=== PATIENT | male | born 1950 | race Two or more races ===

== ENCOUNTER 2018-08-22 09:12 | Outpatient (CLI) | payer MEDICARE, BC ==
[2018-08-22] MEDS ORDERED: OMEG1CAP34 PO (09:50)
[2018-08-22] MEDS ORDERED: IBUP-1840 PO (09:50)
[2018-08-22] MEDS ORDERED: ACET325T14 PO (09:50)
[2018-08-22] MEDS ORDERED: CALCIUM PO (09:50)
[2018-08-22] MEDS ORDERED: POTASSIUM PO (09:50)
[2018-08-22] MEDS ORDERED: [UNRECOGNIZED DRUG - OTHER] PO (09:50)
[2018-08-22] MEDS ORDERED: ATOR10TA PO (09:50)
[2018-08-22 10:16] LABS: BASOPHILS # (AUTO) 0.03 x10^3/uL (0-0.1); BASOPHILS % (AUTO) 1 % (0-1); EOSINOPHILS # (AUTO) 0.16 x10^3/uL (0-0.4); EOSINOPHILS % (AUTO) 3 % (1-7); LYMPHOCYTES # (AUTO) 0.85 x10^3/uL (1-3.4); LYMPHOCYTES % (AUTO) 14 % (22-44); MD NO; MEAN CORPUSCULAR HEMOGLOBIN 31.7 pg (27.5-34.5); MEAN CORPUSCULAR HGB CONC 33.9 g/dL (33.2-36.2); MEAN CORPUSCULAR VOLUME 93.4 fL (81-97); MEAN PLATELET VOLUME 8.6 fL (7.4-10.4); MONOCYTES # (AUTO) 0.71 x10^3/uL (0.2-0.8); MONOCYTES % (AUTO) 12 % (2-9); NEUTROPHILS # (AUTO) 4.18 x10^3/uL (1.8-6.8); NEUTROPHILS % (AUTO) 71 % (42-75); PLATELET COUNT 189 x10^3/uL (130-400); RED CELL DISTRIBUTION WIDTH 14.6 % (9.4-14.8)
[2018-08-22 10:19] LABS: MICROSCOPIC NOT IND
[2018-08-22 10:28] LABS: CALCIUM 8.8 mg/dL (8.5-10.1)
[2018-08-22 10:31] LABS: ALANINE AMINOTRANSFERASE 28 U/L (12-78); ALKALINE PHOSPHATASE 80 U/L (45-117); ANION GAP 6 mmol/L (5-15); BILIRUBIN,TOTAL 0.8 mg/dL (0.2-1.0); CHLORIDE 111 mmol/L (98-107); CREATININE 1.16 mg/dL (0.7-1.3); TOTAL PROTEIN 7.1 g/dL (6.4-8.2)
== END 2018-08-22 23:59 | disposition home or self-care (01) ==
LOC: STAR 09:12
PROVIDERS: ATTEND Urology
DX: Z01.818 Encounter for other preprocedural examination (principal); C61 Malignant neoplasm of prostate; R82.998 Other abnormal findings in urine
CPT/HCPCS: 36415; 80053; 81003; 85025; 87086; 93005

== ENCOUNTER 2018-09-01 10:09 | Inpatient (IN) | payer MEDICARE, BC ==
[~2018-09-01] VITALS: Ht 177.8 cm; Wt 80.2 kg
[~2018-09-01 10:09] MED LIST: ACET325T14 PO; ATOR10TA PO; CALCIUM PO; IBUP-1840 PO; OMEG1CAP34 PO; POTASSIUM PO; [UNRECOGNIZED DRUG - OTHER] PO
[2018-09-01] MEDS ORDERED: FENTANYL PF 250 MCG/5ML ONE (10:51)
[2018-09-01] MEDS ORDERED: MICROFIBRILLAR COLLAGEN 1 GM TP ONE (10:52)
[2018-09-01] MEDS ORDERED: BUPIVACAINE/PF 0.25% ONE (10:52)
[2018-09-01] MEDS ORDERED: EPINEPHRINE 1 MG/ML, 1ML ONE (10:53)
[2018-09-01] MEDS ORDERED: ACETAMINOPHEN 500 MG TABLET PO ONE (11:00)
[2018-09-01] MEDS ORDERED: GABAPENTIN 300 MG CAPSULE PO ONE (11:00)
[2018-09-01] MEDS: LACTATED RINGERS 1,000 ML IV SCH ×2 (11:20→21:03)
[2018-09-01 11:22] VITALS: BP 151/81
[2018-09-01] MEDS ORDERED: MEPERIDINE/PF 25MG/0.5ML IVPush PRN (12:00)
[2018-09-01] MEDS ORDERED: HYDROmorphone 2 MG/ML, 1ML IVPush PRN (12:00)
[2018-09-01] MEDS ORDERED: OXYcodone 5 MG/5 ML ORAL.SOL UDC PO PRN (12:00)
[2018-09-01] MEDS ORDERED: PROMETHAZINE 25 MG/ML, 1ML IV PRN (12:00)
[2018-09-01] MEDS ORDERED: ONDANSETRON 2MG/ML, 2ML IV PRN ×2 (12:00→22:00)
[2018-09-01] MEDS ORDERED: ONDANSETRON ODT 8 MG PO PRN (12:00)
[2018-09-01] MEDS ORDERED: OPIUM/BELLADONNA SUPP.RECT 16.2-60 MG ONE (12:13)
[2018-09-01] MEDS ORDERED: ONDANSETRON 2MG/ML, 2ML ONE (12:36)
[2018-09-01] MEDS ORDERED: DEXAMETHASONE 4 MG/ML, 1ML ONE (12:36)
[2018-09-01] MEDS ORDERED: PROPOFOL 10 MG/ML, 20ML ONE (12:36)
[2018-09-01] MEDS ORDERED: ROCURONIUM 10MG/ML,5ML ONE (12:36)
[2018-09-01] MEDS ORDERED: GLYCOPYRROLATE 0.2MG/1ML, 5ML ONE (12:36)
[2018-09-01] MEDS ORDERED: CEFAZOLIN 1,000 MG ONE (12:36)
[2018-09-01] MEDS ORDERED: SUCCINYLCHOLINE 20 MG/ML, 10ML ONE (12:36)
[2018-09-01] MEDS ORDERED: NEOSTIGMINE 1 MG/ML, 10ML ONE (12:36)
[2018-09-01] MEDS ORDERED: FENTANYL PF 100 MCG/2ML ONE ×2 (14:19→16:29)
[2018-09-01] MEDS ORDERED: OXYcodone 5 MG/5 ML ORAL.SOL UDC ONE (16:30)
[2018-09-01] MEDS: FENTANYL PF 100 MCG/2ML IV PRN ×2 (16:41→17:43)
[2018-09-01] MEDS ORDERED: NITROGLYCERIN 0.4 MG/SPRAY ONE (16:57)
[2018-09-01] MEDS ORDERED: NITROGLYCERIN 0.4 MG/SPRAY SL ONE (17:00)
[2018-09-01 17:44] LABS: TROPONIN I 0.983 ng/mL (0.000-0.045)
[2018-09-01] MEDS ORDERED: HEPARIN 5,000 UNITS/ML, 1ML IV ONE (19:00)
[2018-09-01] MEDS ORDERED: HEPARIN 25,000 UNITS/500ML PMX 500 ML IV PRN (19:00)
[2018-09-01 19:05] LABS: PLATELET COUNT 194 x10^3/uL (130-400)
[2018-09-01] MEDS ORDERED: HYDROmorphone 2 MG/ML, 1ML ONE (19:08)
[2018-09-01] MEDS ORDERED: HYDROmorphone 1 MG/ML, 1ML INJ IV PRN (22:00)
[2018-09-01] MEDS: ACETAMINOPHEN 500 MG TABLET PO SCH (22:17)
[2018-09-01] MEDS: METOPROLOL SUCCINATE 25 MG TAB.ER.24H PO SCH (22:17)
[2018-09-02] MEDS: D5%-0.45NACL+KCL 20MEQ 1,000 ML IV SCH ×3 (01:37→23:04)
[2018-09-02] MEDS: OXYcodone IR 5MG TABLET PO PRN (02:07)
[2018-09-02 02:22] VITALS: BP 109/67
[2018-09-02] MEDS: HEPARIN 5,000 UNITS/ML, 1ML IV PRN ×2 (02:39→10:11)
[2018-09-02 05:40] LABS: ANION GAP 7 mmol/L (5-15); CHLORIDE 103 mmol/L (98-107)
[2018-09-02 05:42] LABS: CREATININE 1.19 mg/dL (0.7-1.3); MEAN CORPUSCULAR HEMOGLOBIN 31.5 pg (27.5-34.5); MEAN CORPUSCULAR HGB CONC 33.5 g/dL (33.2-36.2); MEAN CORPUSCULAR VOLUME 94.2 fL (81-97); MEAN PLATELET VOLUME 8.8 fL (7.4-10.4); PLATELET COUNT 203 x10^3/uL (130-400); RED CELL DISTRIBUTION WIDTH 14.4 % (9.4-14.8)
[2018-09-02] MEDS: ACETAMINOPHEN 500 MG TABLET PO SCH ×3 (05:52→20:16)
[2018-09-02 08:00] VITALS: BP 109/62
[2018-09-02] MEDS ORDERED: SODIUM CHLORIDE 0.9% 1,000 ML IV SCH ×2 (08:06→12:54)
[2018-09-02] MEDS ORDERED: MIDAZOLAM 1 MG/ML, 5ML ONE ×2 (09:26→11:51)
[2018-09-02] MEDS ORDERED: VERAPAMIL 2.5 MG/ML, 2ML ONE (09:26)
[2018-09-02] MEDS ORDERED: FENTANYL PF 100 MCG/2ML ONE (09:26)
[2018-09-02] MEDS ORDERED: HEPARIN 1,000 UNITS/ML, 10ML ONE (09:27)
[2018-09-02] MEDS ORDERED: BIVALIRUDIN 250 MG ONE (09:27)
[2018-09-02] MEDS ORDERED: LIDOCAINE-MPF 1%, 5ML ONE (09:27)
[2018-09-02] MEDS ORDERED: NITROGLYCERIN 5 MG/ML, 10ML ONE (09:27)
[2018-09-02] MEDS ORDERED: TICAGRELOR 90 MG TABLET ONE (09:27)
[2018-09-02] MEDS: METOPROLOL SUCCINATE 25 MG TAB.ER.24H PO SCH ×2 (09:48→20:16)
[2018-09-02] MEDS ORDERED: BIVALIRUDIN 250 MG in SODIUM CHLORIDE 0.9% 50 ML IV SCH (12:54)
[2018-09-02] MEDS ORDERED: CLOPIDOGREL 300 MG TABLET ONE (12:55)
[2018-09-02] MEDS ORDERED: BISACODYL 5 MG EC TABLET PO PRN (13:00)
[2018-09-02] MEDS: ASPIRIN 81 MG TABLET EC PO SCH (16:04)
[2018-09-02 19:57] VITALS: BP_SYST 121; BP_SYST 123; BP_DIAS 67; BP_DIAS 74
[2018-09-02] MEDS: ATORVASTATIN 40 MG TABLET PO SCH (20:16)
[2018-09-02] MEDS ORDERED: ATORVASTATIN 10 MG TABLET PO SCH (21:00)
[2018-09-03 03:17] VITALS: BP 125/66
[2018-09-03] MEDS ORDERED: SIMETHICONE 80 MG CHEW TAB PO PRN (05:00)
[2018-09-03 05:05] LABS: BASOPHILS # (AUTO) 0.03 x10^3/uL (0-0.1); BASOPHILS % (AUTO) 0 % (0-1); EOSINOPHILS # (AUTO) 0.09 x10^3/uL (0-0.4); EOSINOPHILS % (AUTO) 1 % (1-7); LYMPHOCYTES # (AUTO) 1.08 x10^3/uL (1-3.4); LYMPHOCYTES % (AUTO) 14 % (22-44); MD NO; MEAN CORPUSCULAR HEMOGLOBIN 32.3 pg (27.5-34.5); MEAN CORPUSCULAR HGB CONC 34.1 g/dL (33.2-36.2); MEAN CORPUSCULAR VOLUME 94.8 fL (81-97); MEAN PLATELET VOLUME 8.9 fL (7.4-10.4); MONOCYTES # (AUTO) 1.04 x10^3/uL (0.2-0.8); MONOCYTES % (AUTO) 14 % (2-9); NEUTROPHILS # (AUTO) 5.41 x10^3/uL (1.8-6.8); NEUTROPHILS % (AUTO) 71 % (42-75); PLATELET COUNT 170 x10^3/uL (130-400); RED BLOOD COUNT 4.39 x10^6/uL (4.38-5.82); RED CELL DISTRIBUTION WIDTH 14.8 % (9.4-14.8)
[2018-09-03] MEDS ORDERED: SIMETHICONE 80 MG CHEW TAB ONE (05:05)
[2018-09-03] MEDS: ACETAMINOPHEN 500 MG TABLET PO SCH ×3 (05:09→21:23)
[2018-09-03 05:10] LABS: CHLORIDE 112 mmol/L (98-107)
[2018-09-03 05:14] LABS: ANION GAP 2 mmol/L (5-15); CALCIUM 8.1 mg/dL (8.5-10.1); CREATININE 1.07 mg/dL (0.7-1.3)
[2018-09-03] MEDS ORDERED: HYDROmorphone 2 MG/ML, 1ML ONE (07:43)
[2018-09-03 07:51] VITALS: BP 158/82
[2018-09-03] MEDS ORDERED: HYDROmorphone 2 MG/ML, 1ML IVPush PRN (08:30)
[2018-09-03] MEDS: D5%-0.45NACL+KCL 20MEQ 1,000 ML IV SCH ×2 (08:38→16:27)
[2018-09-03] MEDS: CLOPIDOGREL 75 MG TABLET PO SCH (08:46)
[2018-09-03] MEDS: ASPIRIN 81 MG TABLET EC PO SCH (08:46)
[2018-09-03] MEDS: METOPROLOL SUCCINATE 25 MG TAB.ER.24H PO SCH ×2 (08:46→21:23)
[2018-09-03] MEDS: SIMETHICONE 125 MG CHEW TAB PO SCH ×3 (10:08→21:22)
[2018-09-03] MEDS: LISINOPRIL 10 MG TABLET PO SCH (10:08)
[2018-09-03 13:41] VITALS: BP 107/62
[2018-09-03 19:04] VITALS: BP 111/58
[2018-09-03 20:00] VITALS: BP 104/57
[2018-09-03] MEDS: DOCUSATE 100 MG CAPSULE PO SCH (21:22)
[2018-09-03] MEDS: ATORVASTATIN 40 MG TABLET PO SCH (21:23)
[2018-09-04] MEDS: D5%-0.45NACL+KCL 20MEQ 1,000 ML IV SCH ×3 (00:32→21:35)
[2018-09-04 04:00] VITALS: BP 104/62
[2018-09-04] MEDS: SIMETHICONE 125 MG CHEW TAB PO SCH ×3 (06:03→21:35)
[2018-09-04] MEDS: ACETAMINOPHEN 500 MG TABLET PO SCH ×3 (06:03→21:39)
[2018-09-04] MEDS: DOCUSATE 100 MG CAPSULE PO SCH ×2 (10:10→21:35)
[2018-09-04] MEDS: CLOPIDOGREL 75 MG TABLET PO SCH (10:10)
[2018-09-04] MEDS: ASPIRIN 81 MG TABLET EC PO SCH (10:10)
[2018-09-04] MEDS: METOPROLOL SUCCINATE 25 MG TAB.ER.24H PO SCH ×2 (10:11→21:35)
[2018-09-04] MEDS: LISINOPRIL 10 MG TABLET PO SCH (10:11)
[2018-09-04 10:30] VITALS: BP 111/64
[2018-09-04 11:02] LABS: BASOPHILS # (AUTO) 0.02 x10^3/uL (0-0.1); BASOPHILS % (AUTO) 0 % (0-1); EOSINOPHILS # (AUTO) 0.09 x10^3/uL (0-0.4); EOSINOPHILS % (AUTO) 1 % (1-7); LYMPHOCYTES # (AUTO) 0.77 x10^3/uL (1-3.4); LYMPHOCYTES % (AUTO) 11 % (22-44); MD NO; MEAN CORPUSCULAR HEMOGLOBIN 32.6 pg (27.5-34.5); MEAN CORPUSCULAR HGB CONC 34.4 g/dL (33.2-36.2); MEAN CORPUSCULAR VOLUME 94.9 fL (81-97); MEAN PLATELET VOLUME 8.7 fL (7.4-10.4); MONOCYTES # (AUTO) 0.85 x10^3/uL (0.2-0.8); MONOCYTES % (AUTO) 12 % (2-9); NEUTROPHILS # (AUTO) 5.22 x10^3/uL (1.8-6.8); NEUTROPHILS % (AUTO) 75 % (42-75); PLATELET COUNT 192 x10^3/uL (130-400); RED CELL DISTRIBUTION WIDTH 14.4 % (9.4-14.8)
[2018-09-04 15:55] VITALS: BP 113/68
[2018-09-04 20:42] VITALS: BP 114/54
[2018-09-04 21:34] VITALS: BP 108/64
[2018-09-04] MEDS: ATORVASTATIN 40 MG TABLET PO SCH (21:35)
[2018-09-05 00:14] VITALS: BP 102/58
[2018-09-05 05:28] LABS: BASOPHILS # (AUTO) 0.05 x10^3/uL (0-0.1); BASOPHILS % (AUTO) 1 % (0-1); EOSINOPHILS # (AUTO) 0.22 x10^3/uL (0-0.4); EOSINOPHILS % (AUTO) 3 % (1-7); LYMPHOCYTES # (AUTO) 1.04 x10^3/uL (1-3.4); LYMPHOCYTES % (AUTO) 14 % (22-44); MD NO; MEAN CORPUSCULAR HEMOGLOBIN 32.9 pg (27.5-34.5); MEAN CORPUSCULAR HGB CONC 35.1 g/dL (33.2-36.2); MEAN CORPUSCULAR VOLUME 93.7 fL (81-97); MEAN PLATELET VOLUME 8.8 fL (7.4-10.4); MONOCYTES # (AUTO) 0.88 x10^3/uL (0.2-0.8); MONOCYTES % (AUTO) 12 % (2-9); NEUTROPHILS # (AUTO) 5.19 x10^3/uL (1.8-6.8); NEUTROPHILS % (AUTO) 70 % (42-75); PLATELET COUNT 188 x10^3/uL (130-400); RED CELL DISTRIBUTION WIDTH 14.1 % (9.4-14.8)
[2018-09-05] MEDS: SIMETHICONE 125 MG CHEW TAB PO SCH ×4 (05:32→21:29)
[2018-09-05] MEDS: ACETAMINOPHEN 500 MG TABLET PO SCH ×3 (05:32→21:28)
[2018-09-05] MEDS: D5%-0.45NACL+KCL 20MEQ 1,000 ML IV SCH ×3 (05:33→22:49)
[2018-09-05 07:32] VITALS: BP 114/66
[2018-09-05] MEDS: LISINOPRIL 10 MG TABLET PO SCH (08:14)
[2018-09-05] MEDS: DOCUSATE 100 MG CAPSULE PO SCH ×2 (08:14→21:31)
[2018-09-05] MEDS: ASPIRIN 81 MG TABLET EC PO SCH (08:14)
[2018-09-05] MEDS: METOPROLOL SUCCINATE 25 MG TAB.ER.24H PO SCH ×2 (08:14→21:30)
[2018-09-05] MEDS: CLOPIDOGREL 75 MG TABLET PO SCH (08:14)
[2018-09-05] MEDS: OXYcodone IR 5MG TABLET PO PRN (13:26)
[2018-09-05 13:31] VITALS: BP 121/69
[2018-09-05 20:36] VITALS: BP 111/59
[2018-09-05] MEDS: ATORVASTATIN 40 MG TABLET PO SCH (21:30)
[2018-09-06 03:25] VITALS: BP 101/62
[2018-09-06] MEDS: D5%-0.45NACL+KCL 20MEQ 1,000 ML IV SCH ×3 (06:05→21:30)
[2018-09-06] MEDS: SIMETHICONE 125 MG CHEW TAB PO SCH ×4 (06:06→20:45)
[2018-09-06] MEDS: ACETAMINOPHEN 500 MG TABLET PO SCH ×3 (06:06→20:47)
[2018-09-06 08:28] VITALS: BP 110/57
[2018-09-06] MEDS: DOCUSATE 100 MG CAPSULE PO SCH ×2 (08:35→20:45)
[2018-09-06] MEDS: ASPIRIN 81 MG TABLET EC PO SCH (08:36)
[2018-09-06] MEDS: LISINOPRIL 10 MG TABLET PO SCH (08:36)
[2018-09-06] MEDS: METOPROLOL SUCCINATE 25 MG TAB.ER.24H PO SCH ×2 (08:36→20:46)
[2018-09-06] MEDS: CLOPIDOGREL 75 MG TABLET PO SCH (08:36)
[2018-09-06] MEDS: FAMOTIDINE 20 MG TABLET PO SCH (11:14)
[2018-09-06] MEDS: OXYcodone IR 5MG TABLET PO PRN ×2 (12:58→23:09)
[2018-09-06 13:01] VITALS: BP 106/66
[2018-09-06 19:23] VITALS: BP 100/64
[2018-09-06] MEDS: ATORVASTATIN 40 MG TABLET PO SCH (20:45)
[2018-09-07 01:35] VITALS: BP 108/62
[2018-09-07] MEDS: D5%-0.45NACL+KCL 20MEQ 1,000 ML IV SCH (05:12)
[2018-09-07] MEDS: SIMETHICONE 125 MG CHEW TAB PO SCH ×2 (05:14→11:39)
[2018-09-07] MEDS: ACETAMINOPHEN 500 MG TABLET PO SCH ×2 (05:15→15:07)
[2018-09-07 08:09] VITALS: BP 99/58
[2018-09-07 08:37] VITALS: BP 112/59
[2018-09-07] MEDS: ASPIRIN 81 MG TABLET EC PO SCH (08:39)
[2018-09-07] MEDS: LISINOPRIL 10 MG TABLET PO SCH (08:39)
[2018-09-07] MEDS: FAMOTIDINE 20 MG TABLET PO SCH (08:39)
[2018-09-07] MEDS: DOCUSATE 100 MG CAPSULE PO SCH (08:39)
[2018-09-07] MEDS: CLOPIDOGREL 75 MG TABLET PO SCH (08:39)
[2018-09-07] MEDS: METOPROLOL SUCCINATE 25 MG TAB.ER.24H PO SCH (08:40)
[2018-09-07] MEDS: OXYcodone IR 5MG TABLET PO PRN ×2 (09:21→15:07)
[2018-09-07 13:25] VITALS: BP 102/58
[2018-09-07] MEDS ORDERED: OXYC5TAB3 PO (16:04)
[2018-09-07] MEDS ORDERED: ATOR40TA78 PO (16:53)
[2018-09-07] MEDS ORDERED: LISI-167 PO (16:53)
[2018-09-07] MEDS ORDERED: METO25TA91 PO (16:54)
[2018-09-07] MEDS ORDERED: ASPI81TA45 PO (16:54)
[2018-09-07] MEDS ORDERED: CLOP75TA PO (16:55)
== END 2018-09-07 17:25 | disposition home or self-care (01) | DRG 707 ==
LOC: OUT 10:09 → ORIP 18:20 → 5SO 20:29 → 4NOR 09-05 13:08 → DCLOUNGE 09-07 16:12
PROVIDERS: ADMIT Urology; ATTEND Urology
PROC: 8E0W4CZ Robotic Assisted Procedure of Trunk Region, Percutaneous Endoscopic Approach (ICD-10-PCS; 2018-09-01)
PROC: 0VT34ZZ Resection of Bilateral Seminal Vesicles, Percutaneous Endoscopic Approach (ICD-10-PCS; 2018-09-01)
PROC: 0TQC4ZZ Repair Bladder Neck, Percutaneous Endoscopic Approach (ICD-10-PCS; 2018-09-01)
PROC: 0VT04ZZ Resection of Prostate, Percutaneous Endoscopic Approach (ICD-10-PCS; principal; 2018-09-01 12:00)
PROC: 02703DZ Dilation of Coronary Artery, One Artery with Intraluminal Device, Percutaneous Approach (ICD-10-PCS; 2018-09-02)
PROC: 4A023N7 Measurement of Cardiac Sampling and Pressure, Left Heart, Percutaneous Approach (ICD-10-PCS; 2018-09-02)
PROC: B2111ZZ Fluoroscopy of Multiple Coronary Arteries using Low Osmolar Contrast (ICD-10-PCS; 2018-09-02)
DX: C61 Malignant neoplasm of prostate (principal); I21.09 ST elevation (STEMI) myocardial infarction involving other coronary artery of anterior wall; D68.69 Other thrombophilia; K56.7 Ileus, unspecified; I11.9 Hypertensive heart disease without heart failure; E78.5 Hyperlipidemia, unspecified; I48.0 Paroxysmal atrial fibrillation; Z82.49 Family history of ischemic heart disease and other diseases of the circulatory system; Z85.72 Personal history of non-Hodgkin lymphomas; Z87.891 Personal history of nicotine dependence; Z90.79 Acquired absence of other genital organ(s); Z88.6 Allergy status to analgesic agent; Z88.5 Allergy status to narcotic agent; Z88.8 Allergy status to other drugs, medicaments and biological substances
CPT/HCPCS: 36415; 80048; 82570; 84484; 85014; 85018; 85025; 85027; 85049; 85520; 86850; 86900; 88305; 88309; 93005; 93306; 93458; 99156; 99157; C1729; C1769; C1876; C1894; C9600; G0378; J0171; J0583; J0690; J1100; J1170; J1644; J2250; J2405; J2704; J2710; J3010; J3490; C1725; C1760; C1887; J0330; J3480; J7120; Q9967

== ENCOUNTER → 2018-09-08 | Outpatient (CLI) | payer MEDICARE, BC ==
[~2018-09-08] MED LIST changes: +ASPI81TA45 PO; +ATOR40TA78 PO; +CLOP75TA PO; +DOCU-131 PO; +FAMO-79 PO; +LISI-167 PO; +METO25TA91 PO; +OXYC5TAB3 PO; +SIME125T PO
== END | disposition home or self-care (01) ==
LOC: RAD 11:34
PROVIDERS: ATTEND Urology
DX: C61 Malignant neoplasm of prostate (principal)
CPT/HCPCS: 51600; 74430; Q9958

== ENCOUNTER 2018-09-13 00:29 | Inpatient (IN) | payer MEDICARE, BC ==
[~2018-09-13] VITALS: Ht 177.8 cm; Wt 84.1 kg
[~2018-09-13 00:29] MED LIST changes: -DOCU-131 PO; -FAMO-79 PO; -SIME125T PO
[2018-09-13] MEDS ORDERED: ONDANSETRON 2MG/ML, 2ML IVPush ONE (01:00)
[2018-09-13] MEDS ORDERED: SODIUM CHLORIDE FLUSH 10ML SYR IVF ONE (01:00)
[2018-09-13] MEDS ORDERED: SODIUM CHLORIDE 0.9% 1,000ML IVBOLUS ONE (01:00)
[2018-09-13] MEDS ORDERED: ONDANSETRON 2MG/ML, 2ML ONE (01:07)
[2018-09-13] MEDS ORDERED: HYDROmorphone 1 MG/ML, 1ML VIAL ONE ×2 (01:08→02:45)
[2018-09-13] MEDS: HYDROmorphone 2 MG/ML, 1ML IVPush PRN ×4 (01:12→20:36)
[2018-09-13 01:14] LABS: BASOPHILS # (AUTO) 0.09 x10^3/uL (0-0.1); BASOPHILS % (AUTO) 1 % (0-1); EOSINOPHILS # (AUTO) 0.18 x10^3/uL (0-0.4); EOSINOPHILS % (AUTO) 2 % (1-7); LYMPHOCYTES # (AUTO) 0.98 x10^3/uL (1-3.4); LYMPHOCYTES % (AUTO) 11 % (22-44); MD NO; MEAN CORPUSCULAR HEMOGLOBIN 32.1 pg (27.5-34.5); MEAN CORPUSCULAR HGB CONC 33.8 g/dL (33.2-36.2); MEAN PLATELET VOLUME 8.4 fL (7.4-10.4); MONOCYTES # (AUTO) 0.95 x10^3/uL (0.2-0.8); MONOCYTES % (AUTO) 10 % (2-9); NEUTROPHILS # (AUTO) 7.13 x10^3/uL (1.8-6.8); NEUTROPHILS % (AUTO) 76 % (42-75); PLATELET COUNT 326 x10^3/uL (130-400); RED BLOOD COUNT 4.36 x10^6/uL (4.38-5.82); RED CELL DISTRIBUTION WIDTH 14.3 % (9.4-14.8)
--- NOTE | 2018-09-13 01:14 | NUR ---
TASK RN: IV ESTABLISHED, LABS DRAWN. PT MEDICATED PER EMAR FOR PAIN. LAB IN TO DRAW BC. BP/SPO2 MONITORING IN PLACE.
[2018-09-13 01:24] LABS: PROTHROMBIN TIME 10.5 Seconds (9.6-11.5)
[2018-09-13 01:26] LABS: ALANINE AMINOTRANSFERASE 42 U/L (12-78); ALBUMIN 3.7 g/dL (3.4-5.0); ANION GAP 8 mmol/L (5-15); CALCIUM 9.1 mg/dL (8.5-10.1); CHLORIDE 103 mmol/L (98-107); CREATININE 1.23 mg/dL (0.7-1.3)
[2018-09-13 01:28] LABS: ALKALINE PHOSPHATASE 116 U/L (45-117); BILIRUBIN,TOTAL 0.7 mg/dL (0.2-1.0); TOTAL PROTEIN 7.1 g/dL (6.4-8.2)
[2018-09-13] MEDS ORDERED: OMNIPAQUE 350 MG/ML, 100ML BOTTLE ONE (01:48)
--- NOTE | 2018-09-13 02:10 | NUR ---
DR. JONES IN TO DISCUSS POC WITH PT. AND FAMILY.
--- NOTE | 2018-09-13 02:16 | NUR ---
PADS AND UNDERWEAR PROVIDED TO PT. PER REQUEST PT. HAD INCONTINENT EPISODE. AT BS TO ASSIST PT. TO CHANGE. PT. STEADY ON FEET AT BS.
--- NOTE | 2018-09-13 02:57 | NUR ---
NG TUBE PLACED PER ORDER. PT. TOLERATED WELL. CHECKED BY AUSCULTAION/ASPIRATION. H IN TO EVAL PT. FOR ADMISSION.
[2018-09-13 03:13] LABS: TROPONIN I < 0.015 ng/mL (0.000-0.045)
[2018-09-13 05:06] VITALS: BP 115/72
[2018-09-13] MEDS ORDERED: FAMO-79 PO (05:30)
[2018-09-13] MEDS ORDERED: SIME125T PO (05:30)
[2018-09-13 07:42] LABS: MICROSCOPIC INDICATED
[2018-09-13 08:00] VITALS: BP 114/63
[2018-09-13 08:43] LABS: CULTURE INDICATED? NO
[2018-09-13 10:00] LABS: TROPONIN I < 0.015 ng/mL (0.000-0.045)
[2018-09-13] MEDS ORDERED: ASPIRIN 81 MG TABLET CHEW PO ONE (11:30)
[2018-09-13] MEDS ORDERED: CLOPIDOGREL 75 MG TABLET PO ONE (11:30)
[2018-09-13 12:55] VITALS: BP 106/68
[2018-09-13] MEDS: ONDANSETRON 2MG/ML, 2ML IVPush PRN ×2 (16:58→20:36)
[2018-09-13 20:04] VITALS: BP 126/67
[2018-09-14 00:33] VITALS: BP 130/68
[2018-09-14] MEDS: ONDANSETRON 2MG/ML, 2ML IVPush PRN (02:51)
[2018-09-14] MEDS: HYDROmorphone 2 MG/ML, 1ML IVPush PRN (02:51)
[2018-09-14 05:32] LABS: BASOPHILS # (AUTO) 0.02 x10^3/uL (0-0.1); BASOPHILS % (AUTO) 0 % (0-1); EOSINOPHILS # (AUTO) 0.03 x10^3/uL (0-0.4); EOSINOPHILS % (AUTO) 0 % (1-7); LYMPHOCYTES # (AUTO) 0.64 x10^3/uL (1-3.4); LYMPHOCYTES % (AUTO) 7 % (22-44); MD NO; MEAN CORPUSCULAR HEMOGLOBIN 32.3 pg (27.5-34.5); MEAN CORPUSCULAR HGB CONC 34.2 g/dL (33.2-36.2); MEAN CORPUSCULAR VOLUME 94.4 fL (81-97); MEAN PLATELET VOLUME 8.2 fL (7.4-10.4); MONOCYTES # (AUTO) 0.92 x10^3/uL (0.2-0.8); MONOCYTES % (AUTO) 10 % (2-9); NEUTROPHILS # (AUTO) 7.95 x10^3/uL (1.8-6.8); NEUTROPHILS % (AUTO) 83 % (42-75); PLATELET COUNT 312 x10^3/uL (130-400); RED BLOOD COUNT 4.01 x10^6/uL (4.38-5.82); RED CELL DISTRIBUTION WIDTH 14.4 % (9.4-14.8)
[2018-09-14 05:38] LABS: ANION GAP 5 mmol/L (5-15); CALCIUM 8.8 mg/dL (8.5-10.1); CHLORIDE 104 mmol/L (98-107); CREATININE 1.02 mg/dL (0.7-1.3)
[2018-09-14 07:41] VITALS: BP 130/79
[2018-09-14] MEDS ORDERED: DIPHENHYDRAMINE 12.5MG/5ML, 10ML UDC PO ONE (09:00)
[2018-09-14] MEDS ORDERED: CLOPIDOGREL 75 MG TABLET PO SCH (10:30)
[2018-09-14] MEDS ORDERED: ASPIRIN 81 MG TABLET CHEW PO SCH (10:30)
[2018-09-14 14:37] VITALS: BP 137/69
[2018-09-14 20:11] VITALS: BP 112/67
[2018-09-14] MEDS: METOPROLOL SUCCINATE 25 MG TAB.ER.24H PO SCH (20:28)
[2018-09-14] MEDS ORDERED: ATORVASTATIN 40 MG TABLET PO SCH (21:00)
[2018-09-14] MEDS ORDERED: METOPROLOL SUCCINATE 25 MG TAB.ER.24H PO SCH (21:00)
[2018-09-15 02:44] VITALS: BP 115/62
[2018-09-15] MEDS ORDERED: LISINOPRIL 10 MG TABLET PO SCH ×2 (09:00)
[2018-09-15] MEDS ORDERED: DOCUSATE 100 MG CAPSULE PO SCH (09:00)
[2018-09-15] MEDS ORDERED: FAMOTIDINE 20 MG TABLET PO SCH (09:00)
[2018-09-15] MEDS ORDERED: ASPIRIN 81 MG TABLET EC PO SCH (09:00)
[2018-09-15] MEDS ORDERED: CLOPIDOGREL 75 MG TABLET PO SCH (09:00)
[2018-09-15 09:30] VITALS: BP 110/62
[2018-09-15] MEDS: METOPROLOL SUCCINATE 25 MG TAB.ER.24H PO SCH (09:40)
[2018-09-15] MEDS ORDERED: DOCU-131 PO (11:36)
[2018-09-15 12:00] VITALS: BP 99/62
== END 2018-09-15 17:16 | disposition home or self-care (01) | DRG 389 ==
LOC: ED 02:58 → EDIP 02:59 → 4WST 04:05 → DCLOUNGE 09-15 17:05
PROVIDERS: ADMIT Internal Medicine; ATTEND Internal Medicine
DX: K56.50 Intestinal adhesions [bands], unspecified as to partial versus complete obstruction (principal); R71.0 Precipitous drop in hematocrit; I25.10 Atherosclerotic heart disease of native coronary artery without angina pectoris; R59.1 Generalized enlarged lymph nodes; G89.18 Other acute postprocedural pain; I25.2 Old myocardial infarction; Z79.02 Long term (current) use of antithrombotics/antiplatelets; Z79.82 Long term (current) use of aspirin; Z79.899 Other long term (current) drug therapy; Z82.49 Family history of ischemic heart disease and other diseases of the circulatory system; Z85.46 Personal history of malignant neoplasm of prostate; Z85.72 Personal history of non-Hodgkin lymphomas; Z88.5 Allergy status to narcotic agent; Z90.89 Acquired absence of other organs; Z95.5 Presence of coronary angioplasty implant and graft; Z88.6 Allergy status to analgesic agent; Z88.8 Allergy status to other drugs, medicaments and biological substances
CPT/HCPCS: 36415; 74177; 80048; 80053; 81001; 83605; 83690; 84484; 85025; 85610; 85730; 87040; 96361; 96374; 96375; 96376; G0378; J1170; J2405; Q9967; J7030

== ENCOUNTER 2019-03-15 12:45 | Inpatient (IN) | payer MEDICARE, BC ==
[~2019-03-15] VITALS: Ht 172.7 cm; Wt 69.4 kg
[2019-03-15] VITALS (7 sets, daily range): BP systolic 110–129; BP diastolic 53–78
[~2019-03-15 12:45] MED LIST changes: +ALLO100T30 PO; +DOCU-131 PO; +FAMO-79 PO; +FURO40TA6 PO; +HYDR2TAB29 PO; +POLY17PO5 PO; +PRED50TA PO; +SIME125T PO
[2019-03-15] MEDS ORDERED: SODIUM CHLORIDE 0.9% 1,000ML IVBOLUS ONE (13:00)
[2019-03-15 13:31] LABS: ALBUMIN 2.9 g/dL (3.4-5.0); ANION GAP 5 mmol/L (5-15); CHLORIDE 108 mmol/L (98-107); CREATININE 0.82 mg/dL (0.7-1.3)
[2019-03-15 13:36] LABS: MEAN CORPUSCULAR HEMOGLOBIN 32.7 pg (27.5-34.5); MEAN CORPUSCULAR HGB CONC 33.3 g/dL (33.2-36.2); MEAN CORPUSCULAR VOLUME 98.4 fL (81-97); MEAN PLATELET VOLUME 7.6 fL (7.4-10.4); PLATELET COUNT 262 x10^3/uL (130-400); RED BLOOD COUNT 1.93 x10^6/uL (4.38-5.82); RED CELL DISTRIBUTION WIDTH 18.1 % (9.4-14.8)
[2019-03-15 13:37] LABS: MD YES
[2019-03-15] MEDS ORDERED: FENTANYL PF 100 MCG/2ML ONE (13:39)
--- NOTE | 2019-03-15 13:43 | NUR ---
dr feng spoke with nurse prac. for dr tamayo. received labs from [facility].
[2019-03-15 13:46] LABS: CHLORIDE 107 mmol/L (98-107)
--- NOTE | 2019-03-15 13:56 | NUR ---
REPORT GIVEN TO SATINDER
[2019-03-15 13:57] LABS: ALANINE AMINOTRANSFERASE 142 U/L (12-78); ALBUMIN 2.8 g/dL (3.4-5.0); ALKALINE PHOSPHATASE 484 U/L (45-117); ANION GAP 7 mmol/L (5-15); BILIRUBIN,TOTAL 0.9 mg/dL (0.2-1.0); CALCIUM 7.8 mg/dL (8.5-10.1); TOTAL PROTEIN 5.2 g/dL (6.4-8.2)
[2019-03-15] MEDS ORDERED: FENTANYL PF 100 MCG/2ML IVPush ONE (14:00)
[2019-03-15] MEDS ORDERED: SODIUM CHLORIDE 0.9%, 500ML IVBOLUS ONE (14:00)
--- NOTE | 2019-03-15 14:04 | NUR ---
REPORT FROM BERTRAND VAZQUEZ, ASSUME CARE OF PT AT THIS TIME.
--- NOTE | 2019-03-15 14:11 | NUR ---
[facility]OOD BANK CALLED ED: BLOOD READY, RN WILL BE NOTIFIED.
[2019-03-15] MEDS ORDERED: hydrALAzine 20 MG/ML, 1ML IVPush PRN (14:30)
[2019-03-15] MEDS ORDERED: ONDANSETRON 2MG/ML, 2ML IVPush PRN (14:30)
[2019-03-15] MEDS ORDERED: GUAIFENESIN/DM 200-20MG, 10ML UDC PO PRN (14:30)
[2019-03-15] MEDS ORDERED: ONDANSETRON ODT 4 MG PO PRN (14:30)
[2019-03-15] MEDS ORDERED: TRAZODONE 50MG TABLET PO PRN (14:30)
[2019-03-15] MEDS: ENOXAPARIN 30 MG/0.3 ML SQ SCH ×2 (14:30→19:46)
[2019-03-15] MEDS ORDERED: POLYETHYLENE GLYCOL 17 GM PACKET PO PRN (14:30)
[2019-03-15] MEDS ORDERED: ASA/APAP/ CAFFEINE TABLET PO PRN (14:30)
[2019-03-15] MEDS ORDERED: ACETAMINOPHEN 325 MG TABLET PO PRN (14:30)
--- NOTE | 2019-03-15 14:33 | NUR ---
CONSENT SIGNED, PLACED ON CHART. PURPLE SLIP TO PHARMACY.
[2019-03-15 14:58] LABS: BAND#(MANUAL) 0.03 x10^3/uL; BANDS%(MANUAL) 2 % (0-7); BASOS#(MANUAL) 0.03 x10^3/uL (0-0.1); BASOS% (MANUAL) 2 % (0-1); EOS#(MANUAL) 0.12 x10^3/uL (0.0-0.4); EOS% (MANUAL) 8 % (1-7); LYMPH#(MANUAL) 0.33 x10^3/uL (1-3.4); LYMPHS% (MANUAL) 22 % (22-44); MONOS#(MANUAL) 0.29 x10^3/uL (0.3-2.7); MONOS% (MANUAL) 19 % (2-9); NRBC % (MANUAL) 1 % (0-1); SEG#(MANUAL) 0.71 x10^3/uL (1.8-6.8); SEGS% (MANUAL) 47 % (42-75)
[2019-03-15 14:59] LABS: ANISOCYTOSIS 1+; POLYCHROMASIA 1+
[2019-03-15 15:00] LABS: BASOPHILLIC STIPPLING 1+
[2019-03-15 15:03] LABS: <PLATELET ESTIMATE> ADEQUATE; <PLT MORPHOLOGY> NORMAL PLT MORPH
--- NOTE | 2019-03-15 15:36 | NUR ---
REPORT TO MAKAYLA VAZQUEZ. AWAITING ROOM TO BE CLEAN. 1ST UNIT BLOOD TRANSFUSING. AT BS.
[2019-03-15] MEDS: SIMETHICONE 125 MG CHEW TAB PO SCH ×2 (16:00→19:45)
--- NOTE | 2019-03-15 16:42 | NUR ---
PT TRANSPORTED TO FLOOR. 1ST UNIT INFUSING. VSS.
[2019-03-15] MEDS: HYDROmorphone 2MG TABLET PO PRN ×2 (19:54→21:58)
[2019-03-15] MEDS: ATORVASTATIN 40 MG TABLET PO SCH (19:54)
[2019-03-15] MEDS: DOCUSATE 100 MG CAPSULE PO SCH (19:54)
[2019-03-15] MEDS ORDERED: METOPROLOL SUCCINATE 25 MG TAB.ER.24H PO SCH (21:00)
[2019-03-16] MEDS: SIMETHICONE 125 MG CHEW TAB PO SCH ×4 (00:11→20:16)
[2019-03-16 00:49] VITALS: BP 110/52
[2019-03-16] MEDS: HYDROmorphone 2MG TABLET PO PRN ×5 (03:30→18:33)
[2019-03-16 05:11] LABS: MEAN CORPUSCULAR HEMOGLOBIN 32.8 pg (27.5-34.5); MEAN CORPUSCULAR HGB CONC 33.9 g/dL (33.2-36.2); MEAN CORPUSCULAR VOLUME 96.8 fL (81-97); MEAN PLATELET VOLUME 8.3 fL (7.4-10.4); PLATELET COUNT 206 x10^3/uL (130-400); RED BLOOD COUNT 2.57 x10^6/uL (4.38-5.82); RED CELL DISTRIBUTION WIDTH 17.1 % (9.4-14.8)
[2019-03-16 05:17] LABS: ALANINE AMINOTRANSFERASE 105 U/L (12-78); ALBUMIN 2.6 g/dL (3.4-5.0); ANION GAP 5 mmol/L (5-15); CALCIUM 7.5 mg/dL (8.5-10.1); CHLORIDE 110 mmol/L (98-107); CREATININE 0.82 mg/dL (0.7-1.3)
[2019-03-16 05:19] LABS: ALKALINE PHOSPHATASE 383 U/L (45-117); BILIRUBIN,TOTAL 0.9 mg/dL (0.2-1.0); TOTAL PROTEIN 4.7 g/dL (6.4-8.2)
[2019-03-16 05:55] LABS: MD YES
[2019-03-16 06:02] LABS: BAND#(MANUAL) 0.01 x10^3/uL; BANDS%(MANUAL) 1 % (0-7); BASOS#(MANUAL) 0.04 x10^3/uL (0-0.1); BASOS% (MANUAL) 3 % (0-1); EOS#(MANUAL) 0.11 x10^3/uL (0.0-0.4); EOS% (MANUAL) 9 % (1-7); LYMPH#(MANUAL) 0.25 x10^3/uL (1-3.4); LYMPHS% (MANUAL) 21 % (22-44); MONOS% (MANUAL) 17 % (2-9); SEG#(MANUAL) 0.59 x10^3/uL (1.8-6.8); SEGS% (MANUAL) 49 % (42-75)
[2019-03-16 06:03] LABS: ANISOCYTOSIS 1+; POLYCHROMASIA 1+
[2019-03-16 06:04] LABS: <PLATELET ESTIMATE> ADEQUATE; <PLT MORPHOLOGY> NORMAL PLT MORPH; OVALOCYTES 1+
[2019-03-16 07:26] VITALS: BP 126/70
[2019-03-16] MEDS: ASPIRIN 81 MG TABLET EC PO SCH (08:44)
[2019-03-16] MEDS: CLOPIDOGREL 75 MG TABLET PO SCH (08:44)
[2019-03-16] MEDS: DOCUSATE 100 MG CAPSULE PO SCH ×2 (08:44→20:16)
[2019-03-16] MEDS: predniSONE 50MG TABLET PO SCH (08:44)
[2019-03-16] MEDS: TBO-FILGRASTIM 480 MCG/0.8 ML SQ SCH (08:45)
[2019-03-16] MEDS: ENOXAPARIN 40 MG/0.4 ML SQ SCH (08:45)
[2019-03-16] MEDS: POLYETHYLENE GLYCOL 17 GM PACKET PO SCH (08:47)
[2019-03-16] MEDS: ALLOPURINOL 100 MG TABLET PO SCH (08:47)
[2019-03-16] MEDS: OMEPRAZOLE 20 MG CAPSULE.DR PO SCH (08:50)
[2019-03-16] MEDS ORDERED: FAMOTIDINE 20 MG TABLET PO SCH (09:00)
[2019-03-16 13:43] VITALS: BP 114/62
[2019-03-16 18:52] VITALS: BP 113/67
[2019-03-16] MEDS: ATORVASTATIN 40 MG TABLET PO SCH (20:16)
[2019-03-17 01:51] VITALS: BP 114/65
[2019-03-17 04:44] LABS: ANION GAP 3 mmol/L (5-15); CALCIUM 8.2 mg/dL (8.5-10.1); CHLORIDE 109 mmol/L (98-107)
[2019-03-17 04:46] LABS: CREATININE 0.88 mg/dL (0.7-1.3)
[2019-03-17] MEDS: SIMETHICONE 125 MG CHEW TAB PO SCH ×4 (05:10→20:00)
[2019-03-17] MEDS: OMEPRAZOLE 20 MG CAPSULE.DR PO SCH (05:11)
[2019-03-17 05:31] LABS: MEAN CORPUSCULAR HEMOGLOBIN 32.4 pg (27.5-34.5); MEAN CORPUSCULAR HGB CONC 33.8 g/dL (33.2-36.2); MEAN CORPUSCULAR VOLUME 95.8 fL (81-97); PLATELET COUNT 251 x10^3/uL (130-400); RED BLOOD COUNT 2.86 x10^6/uL (4.38-5.82); RED CELL DISTRIBUTION WIDTH 18.4 % (9.4-14.8)
[2019-03-17 05:59] LABS: MD YES
[2019-03-17 06:02] LABS: BAND#(MANUAL) 0.21 x10^3/uL; BANDS%(MANUAL) 8 % (0-7); EOS#(MANUAL) 0.08 x10^3/uL (0.0-0.4); EOS% (MANUAL) 3 % (1-7); LYMPH#(MANUAL) 0.39 x10^3/uL (1-3.4); LYMPHS% (MANUAL) 15 % (22-44); MONOS% (MANUAL) 27 % (2-9); SEG#(MANUAL) 1.22 x10^3/uL (1.8-6.8); SEGS% (MANUAL) 47 % (42-75)
[2019-03-17 06:04] LABS: <PLATELET ESTIMATE> ADEQUATE; <PLT MORPHOLOGY> NORMAL PLT MORPH; ANISOCYTOSIS 1+; OVALOCYTES 1+; POLYCHROMASIA 1+
[2019-03-17 06:34] VITALS: BP 118/63
[2019-03-17] MEDS: HYDROmorphone 2MG TABLET PO PRN ×4 (07:59→23:30)
[2019-03-17] MEDS: ENOXAPARIN 40 MG/0.4 ML SQ SCH (09:00)
[2019-03-17] MEDS: POLYETHYLENE GLYCOL 17 GM PACKET PO SCH (09:00)
[2019-03-17] MEDS: ALLOPURINOL 100 MG TABLET PO SCH (10:42)
[2019-03-17] MEDS: DOCUSATE 100 MG CAPSULE PO SCH ×2 (10:43→20:00)
[2019-03-17] MEDS: predniSONE 50MG TABLET PO SCH (10:45)
[2019-03-17] MEDS: FUROSEMIDE 40 MG TABLET PO SCH (10:47)
[2019-03-17] MEDS: ASPIRIN 81 MG TABLET EC PO SCH (10:48)
[2019-03-17] MEDS: CLOPIDOGREL 75 MG TABLET PO SCH (10:49)
[2019-03-17] MEDS: POTASSIUM CHLORIDE 20 MEQ TAB.ER.PRT PO SCH (12:17)
[2019-03-17] MEDS: TBO-FILGRASTIM 480 MCG/0.8 ML SQ SCH (12:20)
[2019-03-17 14:47] VITALS: BP 126/68
[2019-03-17 19:39] VITALS: BP 109/65
[2019-03-17] MEDS: ATORVASTATIN 40 MG TABLET PO SCH (20:00)
[2019-03-18 01:40] VITALS: BP 100/53
[2019-03-18 04:25] LABS: ALBUMIN 2.6 g/dL (3.4-5.0); ANION GAP 4 mmol/L (5-15); CALCIUM 7.8 mg/dL (8.5-10.1); CHLORIDE 106 mmol/L (98-107)
[2019-03-18 04:29] LABS: ALANINE AMINOTRANSFERASE 66 U/L (12-78); ALKALINE PHOSPHATASE 268 U/L (45-117); BILIRUBIN,TOTAL 1.2 mg/dL (0.2-1.0); CREATININE 0.88 mg/dL (0.7-1.3); TOTAL PROTEIN 4.9 g/dL (6.4-8.2)
[2019-03-18 04:30] LABS: MEAN CORPUSCULAR HGB CONC 33.3 g/dL (33.2-36.2); MEAN CORPUSCULAR VOLUME 99.2 fL (81-97); MEAN PLATELET VOLUME 7.9 fL (7.4-10.4); PLATELET COUNT 249 x10^3/uL (130-400); RED CELL DISTRIBUTION WIDTH 18.8 % (9.4-14.8)
[2019-03-18] MEDS: SIMETHICONE 125 MG CHEW TAB PO SCH ×4 (05:09→19:43)
[2019-03-18] MEDS: HYDROmorphone 2MG TABLET PO PRN ×3 (05:09→15:17)
[2019-03-18] MEDS: OMEPRAZOLE 20 MG CAPSULE.DR PO SCH (05:09)
[2019-03-18 05:19] LABS: MD YES
[2019-03-18 05:27] LABS: BAND#(MANUAL) 1.07 x10^3/uL; BANDS%(MANUAL) 21 % (0-7); EOS% (MANUAL) 2 % (1-7); LYMPH#(MANUAL) 0.56 x10^3/uL (1-3.4); LYMPHS% (MANUAL) 11 % (22-44); METAMYELOCYTES# (MANUAL) 0.15 x10^3/uL (0-0); METAMYELOCYTES% (MANUAL) 3 % (0-1); MONOS#(MANUAL) 1.02 x10^3/uL (0.3-2.7); MONOS% (MANUAL) 20 % (2-9); SEG#(MANUAL) 2.19 x10^3/uL (1.8-6.8); SEGS% (MANUAL) 43 % (42-75)
[2019-03-18 05:28] LABS: ANISOCYTOSIS 1+; OVALOCYTES 1+; POLYCHROMASIA 1+
[2019-03-18 05:29] LABS: <PLATELET ESTIMATE> ADEQUATE; <PLT MORPHOLOGY> NORMAL PLT MORPH
[2019-03-18 05:30] LABS: TOXIC GRAN 1+
[2019-03-18 07:05] VITALS: BP 110/60
[2019-03-18] MEDS: ENOXAPARIN 40 MG/0.4 ML SQ SCH (08:44)
[2019-03-18] MEDS: POLYETHYLENE GLYCOL 17 GM PACKET PO SCH (08:44)
[2019-03-18] MEDS: FUROSEMIDE 40 MG TABLET PO SCH (08:45)
[2019-03-18] MEDS: CLOPIDOGREL 75 MG TABLET PO SCH (08:45)
[2019-03-18] MEDS: POTASSIUM CHLORIDE 20 MEQ TAB.ER.PRT PO SCH (08:45)
[2019-03-18] MEDS: ASPIRIN 81 MG TABLET EC PO SCH (08:45)
[2019-03-18] MEDS: ALLOPURINOL 100 MG TABLET PO SCH (08:45)
[2019-03-18] MEDS: DOCUSATE 100 MG CAPSULE PO SCH ×2 (08:45→19:43)
[2019-03-18] MEDS ORDERED: FOSAPREPITANT 150 MG in SODIUM CHLORIDE 0.9% 145 ML IV ONE ×2 (10:00→10:12)
[2019-03-18] MEDS ORDERED: ACETAMINOPHEN 325 MG TABLET PO ONE (10:00)
[2019-03-18] MEDS ORDERED: ONDANSETRON 16 MG, DEXAMETHASONE 20 MG in SODIUM CHLORIDE 0.9% 50 ML IVPB ONE (11:00)
[2019-03-18] MEDS ORDERED: FAMOTIDINE 20 MG/2 ML IVPush ONE (11:00)
[2019-03-18] MEDS ORDERED: RITUXIMAB 700 MG in SODIUM CHLORIDE 0.9% 250 ML IV ONE (12:00)
[2019-03-18] MEDS ORDERED: predniSONE 50MG TABLET PO ONE (13:30)
[2019-03-18] MEDS ORDERED: DIPHENHYDRAMINE 50 MG CAPSULE PO PRN (13:30)
[2019-03-18 13:40] VITALS: BP 101/60
[2019-03-18] MEDS ORDERED: prednisOLONE 15 MG/5 ML ORAL SOLN PO ONE (14:00)
[2019-03-18 19:14] VITALS: BP 108/59
[2019-03-18] MEDS: ATORVASTATIN 40 MG TABLET PO SCH (19:43)
[2019-03-19 01:25] VITALS: BP 104/56
[2019-03-19 05:09] LABS: MEAN CORPUSCULAR HEMOGLOBIN 32.8 pg (27.5-34.5); MEAN CORPUSCULAR VOLUME 99.6 fL (81-97); MEAN PLATELET VOLUME 7.6 fL (7.4-10.4); PLATELET COUNT 269 x10^3/uL (130-400); RED BLOOD COUNT 2.84 x10^6/uL (4.38-5.82); RED CELL DISTRIBUTION WIDTH 18.8 % (9.4-14.8)
[2019-03-19 05:18] LABS: ALANINE AMINOTRANSFERASE 61 U/L (12-78); ALBUMIN 2.6 g/dL (3.4-5.0); ANION GAP 5 mmol/L (5-15); CHLORIDE 106 mmol/L (98-107); CREATININE 0.98 mg/dL (0.7-1.3)
[2019-03-19 05:21] LABS: ALKALINE PHOSPHATASE 270 U/L (45-117); BILIRUBIN,TOTAL 0.9 mg/dL (0.2-1.0)
[2019-03-19 05:23] LABS: MD YES
[2019-03-19 05:26] LABS: BANDS%(MANUAL) 8 % (0-7); LYMPH#(MANUAL) 0.78 x10^3/uL (1-3.4); LYMPHS% (MANUAL) 7 % (22-44); METAMYELOCYTES# (MANUAL) 0.11 x10^3/uL (0-0); METAMYELOCYTES% (MANUAL) 1 % (0-1); MONOS#(MANUAL) 0.34 x10^3/uL (0.3-2.7); MONOS% (MANUAL) 3 % (2-9); SEG#(MANUAL) 9.07 x10^3/uL (1.8-6.8); SEGS% (MANUAL) 81 % (42-75)
[2019-03-19 05:27] LABS: <PLATELET ESTIMATE> ADEQUATE; <PLT MORPHOLOGY> NORMAL PLT MORPH; ANISOCYTOSIS 1+; OVALOCYTES 1+; POLYCHROMASIA 1+; TOXIC GRAN 1+
[2019-03-19] MEDS: SIMETHICONE 125 MG CHEW TAB PO SCH ×4 (05:52→21:03)
[2019-03-19] MEDS: OMEPRAZOLE 20 MG CAPSULE.DR PO SCH (05:52)
[2019-03-19 07:05] VITALS: BP 122/68
[2019-03-19] MEDS: CLOPIDOGREL 75 MG TABLET PO SCH (08:48)
[2019-03-19] MEDS: ALLOPURINOL 100 MG TABLET PO SCH (08:48)
[2019-03-19] MEDS: FUROSEMIDE 40 MG TABLET PO SCH (08:48)
[2019-03-19] MEDS: DOCUSATE 100 MG CAPSULE PO SCH ×2 (08:48→21:03)
[2019-03-19] MEDS: POTASSIUM CHLORIDE 20 MEQ TAB.ER.PRT PO SCH (08:48)
[2019-03-19] MEDS: POLYETHYLENE GLYCOL 17 GM PACKET PO SCH (08:49)
[2019-03-19] MEDS: ASPIRIN 81 MG TABLET EC PO SCH (08:49)
[2019-03-19] MEDS: ENOXAPARIN 40 MG/0.4 ML SQ SCH (08:50)
[2019-03-19] MEDS ORDERED: DEXAMETHASONE 20 MG in SODIUM CHLORIDE 0.9% 50 ML IV ONE (11:00)
[2019-03-19 12:23] VITALS: BP 130/70
[2019-03-19] MEDS: HYDROmorphone 2 MG/ML, 1ML IVPush PRN (13:54)
[2019-03-19 18:43] VITALS: BP_SYST 101; BP_SYST 90; BP_DIAS 51; BP_DIAS 61
[2019-03-19] MEDS: ATORVASTATIN 40 MG TABLET PO SCH (21:03)
[2019-03-20 01:56] VITALS: BP 165/81
[2019-03-20 01:59] VITALS: BP 101/50
[2019-03-20 05:07] LABS: MEAN CORPUSCULAR HEMOGLOBIN 33.2 pg (27.5-34.5); MEAN CORPUSCULAR HGB CONC 33.6 g/dL (33.2-36.2); MEAN CORPUSCULAR VOLUME 98.6 fL (81-97); MEAN PLATELET VOLUME 7.6 fL (7.4-10.4); PLATELET COUNT 318 x10^3/uL (130-400); RED BLOOD COUNT 3.18 x10^6/uL (4.38-5.82); RED CELL DISTRIBUTION WIDTH 19.1 % (9.4-14.8)
[2019-03-20 05:19] LABS: ALANINE AMINOTRANSFERASE 79 U/L (12-78); ALBUMIN 3.1 g/dL (3.4-5.0); ANION GAP 3 mmol/L (5-15); CALCIUM 8.1 mg/dL (8.5-10.1); CHLORIDE 106 mmol/L (98-107); CREATININE 0.91 mg/dL (0.7-1.3)
[2019-03-20 05:21] LABS: ALKALINE PHOSPHATASE 277 U/L (45-117); TOTAL PROTEIN 5.5 g/dL (6.4-8.2)
[2019-03-20 05:34] LABS: MD YES
[2019-03-20 05:41] LABS: BAND#(MANUAL) 0.78 x10^3/uL; BANDS%(MANUAL) 7 % (0-7); EOS#(MANUAL) 0.11 x10^3/uL (0.0-0.4); EOS% (MANUAL) 1 % (1-7); LYMPH#(MANUAL) 1.11 x10^3/uL (1-3.4); LYMPHS% (MANUAL) 10 % (22-44); METAMYELOCYTES# (MANUAL) 0.11 x10^3/uL (0-0); METAMYELOCYTES% (MANUAL) 1 % (0-1); MONOS#(MANUAL) 0.89 x10^3/uL (0.3-2.7); MONOS% (MANUAL) 8 % (2-9); MYELOCYTES# (MANUAL) 0.33 x10^3/uL (0-0); MYELOCYTES% (MANUAL) 3 % (0-0); SEG#(MANUAL) 7.77 x10^3/uL (1.8-6.8); SEGS% (MANUAL) 70 % (42-75)
[2019-03-20 05:42] LABS: ANISOCYTOSIS 1+; POLYCHROMASIA 1+
[2019-03-20 05:43] LABS: OVALOCYTES 1+
[2019-03-20 05:44] LABS: <PLATELET ESTIMATE> ADEQUATE; <PLT MORPHOLOGY> NORMAL PLT MORPH
[2019-03-20] MEDS: OMEPRAZOLE 20 MG CAPSULE.DR PO SCH (06:13)
[2019-03-20] MEDS: HYDROmorphone 2MG TABLET PO PRN ×2 (06:14→10:33)
[2019-03-20] MEDS: SIMETHICONE 125 MG CHEW TAB PO SCH ×4 (06:15→21:04)
[2019-03-20 07:17] VITALS: BP 147/73
[2019-03-20] MEDS: ENOXAPARIN 40 MG/0.4 ML SQ SCH (09:00)
[2019-03-20] MEDS: POLYETHYLENE GLYCOL 17 GM PACKET PO SCH (09:00)
[2019-03-20] MEDS: ALLOPURINOL 100 MG TABLET PO SCH (09:18)
[2019-03-20] MEDS: CLOPIDOGREL 75 MG TABLET PO SCH (09:18)
[2019-03-20] MEDS: ASPIRIN 81 MG TABLET EC PO SCH (09:18)
[2019-03-20] MEDS: POTASSIUM CHLORIDE 20 MEQ TAB.ER.PRT PO SCH (09:18)
[2019-03-20] MEDS: FUROSEMIDE 40 MG TABLET PO SCH (09:19)
[2019-03-20] MEDS: DOCUSATE 100 MG CAPSULE PO SCH ×2 (09:19→21:04)
[2019-03-20] MEDS ORDERED: POTASSIUM CHLORIDE 20 MEQ TAB.ER.PRT PO ONE ×2 (09:30→14:30)
[2019-03-20] MEDS: HYDROmorphone 2 MG/ML, 1ML IVPush PRN (13:19)
[2019-03-20 14:18] VITALS: BP 124/71
[2019-03-20] MEDS: ONDANSETRON 16 MG, DEXAMETHASONE 20 MG in SODIUM CHLORIDE 0.9% 50 ML IVPB SCH (14:41)
[2019-03-20] MEDS: ETOPOSIDE 190 MG in SODIUM CHLORIDE 0.9% 500 ML IV SCH (16:10)
[2019-03-20 21:02] VITALS: BP 126/70
[2019-03-20] MEDS: ATORVASTATIN 40 MG TABLET PO SCH (21:04)
[2019-03-21 03:32] VITALS: BP 109/63
[2019-03-21 04:07] LABS: ALANINE AMINOTRANSFERASE 62 U/L (12-78); ALBUMIN 2.9 g/dL (3.4-5.0); ANION GAP 5 mmol/L (5-15); BASOPHILS % (AUTO) 0 % (0-1); CHLORIDE 103 mmol/L (98-107); CREATININE 0.91 mg/dL (0.7-1.3); EOSINOPHILS # (AUTO) 0.01 x10^3/uL (0-0.4); EOSINOPHILS % (AUTO) 0 % (1-7); LYMPHOCYTES # (AUTO) 0.43 x10^3/uL (1-3.4); LYMPHOCYTES % (AUTO) 6 % (22-44); MD NO; MEAN CORPUSCULAR HGB CONC 33.1 g/dL (33.2-36.2); MEAN CORPUSCULAR VOLUME 99.7 fL (81-97); MEAN PLATELET VOLUME 7.6 fL (7.4-10.4); MONOCYTES # (AUTO) 1.06 x10^3/uL (0.2-0.8); MONOCYTES % (AUTO) 14 % (2-9); NEUTROPHILS # (AUTO) 5.91 x10^3/uL (1.8-6.8); NEUTROPHILS % (AUTO) 80 % (42-75); PLATELET COUNT 269 x10^3/uL (130-400); RED BLOOD COUNT 2.93 x10^6/uL (4.38-5.82); RED CELL DISTRIBUTION WIDTH 18.4 % (9.4-14.8)
[2019-03-21 04:09] LABS: ALKALINE PHOSPHATASE 232 U/L (45-117); TOTAL PROTEIN 5.2 g/dL (6.4-8.2)
[2019-03-21 05:32] LABS: BAND#(MANUAL) 0.44 x10^3/uL; BANDS%(MANUAL) 6 % (0-7); LYMPH#(MANUAL) 0.59 x10^3/uL (1-3.4); LYMPHS% (MANUAL) 8 % (22-44); METAMYELOCYTES# (MANUAL) 0.15 x10^3/uL (0-0); METAMYELOCYTES% (MANUAL) 2 % (0-1); MONOS#(MANUAL) 0.59 x10^3/uL (0.3-2.7); MONOS% (MANUAL) 8 % (2-9); NRBC % (MANUAL) 1 % (0-1); SEG#(MANUAL) 5.62 x10^3/uL (1.8-6.8); SEGS% (MANUAL) 76 % (42-75)
[2019-03-21 05:33] LABS: ANISOCYTOSIS 1+
[2019-03-21 05:34] LABS: POLYCHROMASIA 1+
[2019-03-21 05:35] LABS: <PLATELET ESTIMATE> ADEQUATE; <PLT MORPHOLOGY> NORMAL PLT MORPH; OVALOCYTES 1+
[2019-03-21] MEDS: OMEPRAZOLE 20 MG CAPSULE.DR PO SCH (06:03)
[2019-03-21] MEDS: SIMETHICONE 125 MG CHEW TAB PO SCH ×4 (06:03→19:55)
[2019-03-21 07:52] VITALS: BP 132/72
[2019-03-21] MEDS: ENOXAPARIN 40 MG/0.4 ML SQ SCH (09:00)
[2019-03-21] MEDS: POLYETHYLENE GLYCOL 17 GM PACKET PO SCH (09:00)
[2019-03-21] MEDS: POTASSIUM CHLORIDE 20 MEQ TAB.ER.PRT PO SCH (09:16)
[2019-03-21] MEDS: DOCUSATE 100 MG CAPSULE PO SCH ×2 (09:16→19:55)
[2019-03-21] MEDS: FUROSEMIDE 40 MG TABLET PO SCH (09:17)
[2019-03-21] MEDS: CLOPIDOGREL 75 MG TABLET PO SCH (09:17)
[2019-03-21] MEDS: ASPIRIN 81 MG TABLET EC PO SCH (09:17)
[2019-03-21] MEDS: ALLOPURINOL 100 MG TABLET PO SCH (09:18)
[2019-03-21] MEDS ORDERED: FOSAPREPITANT 150 MG in SODIUM CHLORIDE 0.9% 145 ML IV ONE (10:00)
[2019-03-21] MEDS ORDERED: SODIUM CHLORIDE 0.9% IV ONE ×2 (11:00→15:00)
[2019-03-21] MEDS ORDERED: CARBOPLATIN IV ONE (11:00)
[2019-03-21 11:08] LABS: MICROSCOPIC NOT IND
[2019-03-21 11:16] LABS: CULTURE INDICATED? NO
[2019-03-21] MEDS: HYDROmorphone 2MG TABLET PO PRN ×2 (11:19→18:37)
[2019-03-21] MEDS: ONDANSETRON 16 MG, DEXAMETHASONE 20 MG in SODIUM CHLORIDE 0.9% 50 ML IVPB SCH (12:04)
[2019-03-21 13:13] VITALS: BP 122/62
[2019-03-21] MEDS: ETOPOSIDE 190 MG in SODIUM CHLORIDE 0.9% 500 ML IV SCH (13:56)
[2019-03-21] MEDS ORDERED: MESNA IV ONE (15:00)
[2019-03-21] MEDS ORDERED: IFOSFAMIDE IV ONE (15:00)
[2019-03-21 18:35] VITALS: BP 114/63
[2019-03-21] MEDS: ATORVASTATIN 40 MG TABLET PO SCH (19:55)
[2019-03-22 03:16] VITALS: BP 110/54
[2019-03-22 03:34] LABS: BASOPHILS # (AUTO) 0.01 x10^3/uL (0-0.1); BASOPHILS % (AUTO) 0 % (0-1); EOSINOPHILS # (AUTO) 0.01 x10^3/uL (0-0.4); EOSINOPHILS % (AUTO) 0 % (1-7); LYMPHOCYTES # (AUTO) 0.47 x10^3/uL (1-3.4); LYMPHOCYTES % (AUTO) 6 % (22-44); MD NO; MEAN CORPUSCULAR HEMOGLOBIN 32.8 pg (27.5-34.5); MEAN CORPUSCULAR HGB CONC 33.1 g/dL (33.2-36.2); MEAN CORPUSCULAR VOLUME 99.2 fL (81-97); MEAN PLATELET VOLUME 7.7 fL (7.4-10.4); MONOCYTES # (AUTO) 0.33 x10^3/uL (0.2-0.8); MONOCYTES % (AUTO) 5 % (2-9); NEUTROPHILS % (AUTO) 89 % (42-75); PLATELET COUNT 280 x10^3/uL (130-400); RED CELL DISTRIBUTION WIDTH 17.9 % (9.4-14.8)
[2019-03-22 03:46] LABS: ALANINE AMINOTRANSFERASE 52 U/L (12-78); ALBUMIN 2.9 g/dL (3.4-5.0); ANION GAP 7 mmol/L (5-15); CALCIUM 8.3 mg/dL (8.5-10.1); CHLORIDE 104 mmol/L (98-107); CREATININE 0.93 mg/dL (0.7-1.3)
[2019-03-22 03:49] LABS: ALKALINE PHOSPHATASE 229 U/L (45-117); TOTAL PROTEIN 5.7 g/dL (6.4-8.2)
[2019-03-22] MEDS: OMEPRAZOLE 20 MG CAPSULE.DR PO SCH (05:57)
[2019-03-22] MEDS: SIMETHICONE 125 MG CHEW TAB PO SCH ×4 (05:57→19:53)
[2019-03-22 06:40] LABS: MICROSCOPIC NOT IND
[2019-03-22 06:42] LABS: CULTURE INDICATED? NO
[2019-03-22 08:06] VITALS: BP 109/63
[2019-03-22] MEDS: POTASSIUM CHLORIDE 20 MEQ TAB.ER.PRT PO SCH (08:08)
[2019-03-22] MEDS: FUROSEMIDE 20 MG TABLET PO SCH (08:08)
[2019-03-22] MEDS: ASPIRIN 81 MG TABLET EC PO SCH (08:08)
[2019-03-22] MEDS: DOCUSATE 100 MG CAPSULE PO SCH ×2 (08:08→19:53)
[2019-03-22] MEDS: POLYETHYLENE GLYCOL 17 GM PACKET PO SCH ×2 (08:08→09:30)
[2019-03-22] MEDS: ALLOPURINOL 100 MG TABLET PO SCH (08:09)
[2019-03-22] MEDS: ENOXAPARIN 40 MG/0.4 ML SQ SCH (08:09)
[2019-03-22] MEDS: CLOPIDOGREL 75 MG TABLET PO SCH (08:09)
[2019-03-22] MEDS: HYDROmorphone 2MG TABLET PO PRN ×2 (09:37→19:37)
[2019-03-22] MEDS: ONDANSETRON 16 MG, DEXAMETHASONE 20 MG in SODIUM CHLORIDE 0.9% 50 ML IVPB SCH (11:31)
[2019-03-22 12:55] VITALS: BP 112/63
[2019-03-22] MEDS: ETOPOSIDE 190 MG in SODIUM CHLORIDE 0.9% 500 ML IV SCH (14:00)
[2019-03-22 19:02] VITALS: BP 109/59
[2019-03-22] MEDS: ATORVASTATIN 40 MG TABLET PO SCH (19:53)
[2019-03-23 02:45] VITALS: BP 117/60
[2019-03-23] MEDS: SIMETHICONE 125 MG CHEW TAB PO SCH ×2 (05:54→11:18)
[2019-03-23] MEDS: OMEPRAZOLE 20 MG CAPSULE.DR PO SCH (05:54)
[2019-03-23 06:23] LABS: BASOPHILS # (AUTO) 0.02 x10^3/uL (0-0.1); BASOPHILS % (AUTO) 0 % (0-1); EOSINOPHILS # (AUTO) 0.13 x10^3/uL (0-0.4); EOSINOPHILS % (AUTO) 2 % (1-7); LYMPHOCYTES # (AUTO) 0.53 x10^3/uL (1-3.4); LYMPHOCYTES % (AUTO) 8 % (22-44); MD NO; MEAN CORPUSCULAR HEMOGLOBIN 33.7 pg (27.5-34.5); MEAN PLATELET VOLUME 7.8 fL (7.4-10.4); MONOCYTES # (AUTO) 0.09 x10^3/uL (0.2-0.8); MONOCYTES % (AUTO) 1 % (2-9); NEUTROPHILS # (AUTO) 6.01 x10^3/uL (1.8-6.8); NEUTROPHILS % (AUTO) 89 % (42-75); PLATELET COUNT 278 x10^3/uL (130-400); RED BLOOD COUNT 3.21 x10^6/uL (4.38-5.82); RED CELL DISTRIBUTION WIDTH 18.1 % (9.4-14.8)
[2019-03-23 06:36] LABS: CHLORIDE 105 mmol/L (98-107)
[2019-03-23 06:41] LABS: ALANINE AMINOTRANSFERASE 47 U/L (12-78); ALBUMIN 3.1 g/dL (3.4-5.0); ALKALINE PHOSPHATASE 195 U/L (45-117); ANION GAP 6 mmol/L (5-15); BILIRUBIN,TOTAL 1.1 mg/dL (0.2-1.0); CALCIUM 8.5 mg/dL (8.5-10.1); CREATININE 0.96 mg/dL (0.7-1.3); TOTAL PROTEIN 5.6 g/dL (6.4-8.2)
[2019-03-23 07:59] VITALS: BP 127/66
[2019-03-23] MEDS: POTASSIUM CHLORIDE 20 MEQ TAB.ER.PRT PO SCH (08:21)
[2019-03-23] MEDS: DOCUSATE 100 MG CAPSULE PO SCH (08:22)
[2019-03-23] MEDS: ASPIRIN 81 MG TABLET EC PO SCH (08:23)
[2019-03-23] MEDS: POLYETHYLENE GLYCOL 17 GM PACKET PO SCH (08:25)
[2019-03-23] MEDS: CLOPIDOGREL 75 MG TABLET PO SCH (08:26)
[2019-03-23] MEDS: ALLOPURINOL 100 MG TABLET PO SCH (08:27)
[2019-03-23] MEDS: HYDROmorphone 2MG TABLET PO PRN (08:31)
[2019-03-23] MEDS: FUROSEMIDE 20 MG TABLET PO SCH (08:33)
[2019-03-23] MEDS: ENOXAPARIN 40 MG/0.4 ML SQ SCH (08:44)
[2019-03-23] MEDS ORDERED: OMEP-110 PO (12:13)
[2019-03-23 12:45] VITALS: BP_SYST 120; BP_SYST 161; BP_DIAS 64; BP_DIAS 99
[2019-03-23 13:44] VITALS: BP 106/63
[2019-03-23 13:48] VITALS: BP 110/60
[2019-03-23 13:52] VITALS: BP_SYST 117; BP_SYST 96; BP_DIAS 60; BP_DIAS 73
== END 2019-03-23 15:00 | disposition home or self-care (01) | DRG 811 ==
LOC: ED 13:50 → EDIP 13:55 → 4NW 16:40 → DCLOUNGE 03-23 14:42
PROVIDERS: ADMIT Family Medicine; ATTEND Internal Medicine
PROC: 30233N1 Transfusion of Nonautologous Red Blood Cells into Peripheral Vein, Percutaneous Approach (ICD-10-PCS; 2019-03-15)
PROC: 3E04305 Introduction of Other Antineoplastic into Central Vein, Percutaneous Approach (ICD-10-PCS; 2019-03-18)
PROC: 3E0330M Introduction of Antineoplastic, Monoclonal Antibody, into Peripheral Vein, Percutaneous Approach (ICD-10-PCS; 2019-03-18)
PROC: 02HV33Z Insertion of Infusion Device into Superior Vena Cava, Percutaneous Approach (ICD-10-PCS; principal; 2019-03-20)
PROC: B5181ZA Fluoroscopy of Superior Vena Cava using Low Osmolar Contrast, Guidance (ICD-10-PCS; 2019-03-20)
PROC: B548ZZA Ultrasonography of Superior Vena Cava, Guidance (ICD-10-PCS; 2019-03-20)
DX: D64.81 Anemia due to antineoplastic chemotherapy (principal); K83.1 Obstruction of bile duct; N17.0 Acute kidney failure with tubular necrosis; C83.30 Diffuse large B-cell lymphoma, unspecified site; E46 Unspecified protein-calorie malnutrition; I50.30 Unspecified diastolic (congestive) heart failure; R18.8 Other ascites; D70.9 Neutropenia, unspecified; E83.51 Hypocalcemia; I25.10 Atherosclerotic heart disease of native coronary artery without angina pectoris; I11.0 Hypertensive heart disease with heart failure; E78.5 Hyperlipidemia, unspecified; I25.2 Old myocardial infarction; J45.909 Unspecified asthma, uncomplicated; Z85.46 Personal history of malignant neoplasm of prostate; K21.0 Gastro-esophageal reflux disease with esophagitis; T45.1X5A Adverse effect of antineoplastic and immunosuppressive drugs, initial encounter; Z68.23 Body mass index [BMI] 23.0-23.9, adult; Z88.5 Allergy status to narcotic agent; Z88.6 Allergy status to analgesic agent
CPT/HCPCS: 36415; 36430; 36573; 80048; 80053; 81003; 82040; 83615; 83735; 84550; 85025; 86705; 86706; 86803; 86850; 86900; 86923; 87340; 93005; 96361; 96374; G0378; J1100; J1170; J1453; J2405; J3010; J9045; J9181; J9209; C1751; J1447; J3490; J7030; J7040; J7050; J7512; J9208; J9312; P9040

== ENCOUNTER 2019-03-25 12:34 | Emergency (ER) | payer MEDICARE, BC ==
[~2019-03-25] VITALS: Ht 172.7 cm; Wt 68.2 kg
[~2019-03-25 12:34] MED LIST changes: +OMEP-110 PO
[2019-03-25] MEDS ORDERED: SODIUM CHLORIDE 0.9% 1,000 ML IV ONE (13:10)
[2019-03-25 13:28] VITALS: BP 114/59
--- NOTE | 2019-03-25 13:29 | NUR ---
IV ACCESS OBTAINED. NS STARTED AT 2250 MLR. PT REPORTS MINIMAL PAIN AT THIS TIME. PER PT AND MD MEDS ORDERED FOR WHEN PT CAN NO LONGER TOLERATE. PT ENCOURAGED TO REPORT PAIN EARLY. CALL LIGHT IN REACH.
[2019-03-25] MEDS ORDERED: HYDROmorphone 2 MG/ML, 1ML IVPush PRN (13:30)
[2019-03-25] MEDS ORDERED: SODIUM CHLORIDE FLUSH 10ML SYR IVF ONE (13:30)
[2019-03-25] MEDS ORDERED: ONDANSETRON 2MG/ML, 2ML IVPush ONE (13:30)
[2019-03-25 13:42] LABS: ALANINE AMINOTRANSFERASE 38 U/L (12-78); ALBUMIN 3.1 g/dL (3.4-5.0); ANION GAP 6 mmol/L (5-15); CHLORIDE 108 mmol/L (98-107); CREATININE 1.23 mg/dL (0.7-1.3)
[2019-03-25 13:44] LABS: ALKALINE PHOSPHATASE 174 U/L (45-117); BILIRUBIN,TOTAL 0.9 mg/dL (0.2-1.0); TOTAL PROTEIN 5.8 g/dL (6.4-8.2)
[2019-03-25 13:47] LABS: BASOPHILS # (AUTO) 0.08 x10^3/uL (0-0.1); BASOPHILS % (AUTO) 1 % (0-1); EOSINOPHILS # (AUTO) 0.04 x10^3/uL (0-0.4); EOSINOPHILS % (AUTO) 0 % (1-7); LYMPHOCYTES # (AUTO) 0.18 x10^3/uL (1-3.4); LYMPHOCYTES % (AUTO) 1 % (22-44); MD SCAN; MEAN CORPUSCULAR HEMOGLOBIN 33.1 pg (27.5-34.5); MEAN CORPUSCULAR HGB CONC 33.4 g/dL (33.2-36.2); MEAN CORPUSCULAR VOLUME 99.2 fL (81-97); MEAN PLATELET VOLUME 7.9 fL (7.4-10.4); MONOCYTES # (AUTO) 0.03 x10^3/uL (0.2-0.8); MONOCYTES % (AUTO) 0 % (2-9); NEUTROPHILS # (AUTO) 14.66 x10^3/uL (1.8-6.8); NEUTROPHILS % (AUTO) 98 % (42-75); PLATELET COUNT 153 x10^3/uL (130-400); RED BLOOD COUNT 2.89 x10^6/uL (4.38-5.82); RED CELL DISTRIBUTION WIDTH 17.1 % (9.4-14.8)
[2019-03-25] MEDS ORDERED: PINK LADY ENEMA 490 ML BOTTLE PR ONE (14:30)
[2019-03-25] MEDS ORDERED: BISACODYL 5 MG EC TABLET PO ONE (14:30)
[2019-03-25] MEDS ORDERED: HYDROmorphone 1 MG/ML, 1ML VIAL ONE (14:43)
[2019-03-25] MEDS ORDERED: ONDANSETRON 2MG/ML, 2ML ONE (14:43)
[2019-03-25] MEDS ORDERED: BISACODYL 5 MG EC TABLET ONE (14:44)
--- NOTE | 2019-03-25 17:48 | NUR ---
upon giving d/c instructions asked if bandages on sacrum could be changed. collected supplies and upon entering room pt is on commode again. pt states that he is having a bowel movement and asks if he can have some time.
== END 2019-03-25 18:54 | disposition home or self-care (01) ==
LOC: ED 14:18
DX: R10.84 Generalized abdominal pain (principal); K59.00 Constipation, unspecified; R10.31 Right lower quadrant pain; I10 Essential (primary) hypertension; I25.2 Old myocardial infarction; Z85.46 Personal history of malignant neoplasm of prostate
CPT/HCPCS: 36415; 74177; 80053; 83690; 85025; 86850; 86900; 96374; 96375; 99284; J1170; J2405; J7030

== ENCOUNTER → 2019-04-27 | Outpatient (CLI) | payer MEDICARE, BC ==
[~2019-04-27] MED LIST changes: +AMOX-367 PO; +ONDA4TAB13 PO
== END | disposition home or self-care (01) ==
LOC: STAR 09:02
PROVIDERS: ATTEND Internal Medicine
DX: Z01.818 Encounter for other preprocedural examination (principal); Z85.46 Personal history of malignant neoplasm of prostate; Z85.89 Personal history of malignant neoplasm of other organs and systems
CPT/HCPCS: 93005

== ENCOUNTER → 2019-04-27 | Outpatient (CLI) | payer MEDICARE, BC | END | disposition home or self-care (01) | LOC: PETCFH 09:47 | PROVIDERS: ATTEND Internal Medicine | DX: C82.08 Follicular lymphoma grade I, lymph nodes of multiple sites (principal) | CPT/HCPCS: 78815; A9552 ==

== ENCOUNTER → 2019-09-19 | Outpatient (CLI) | payer MEDICARE, BC | END | disposition home or self-care (01) | LOC: PETCFH 11:22 | PROVIDERS: ATTEND Internal Medicine | DX: C82.08 Follicular lymphoma grade I, lymph nodes of multiple sites (principal); C83.30 Diffuse large B-cell lymphoma, unspecified site | CPT/HCPCS: 78815; A9552 ==